=== PATIENT | female | born 1990 | race African-American/Black ===

== ENCOUNTER 2025-02-18 11:48 | Emergency (ER) | payer OTHER ==
[~2025-02-18] VITALS: Ht 167.6 cm; Wt 66.0 kg
[2025-02-18 11:52] VITALS: O2SAT 100
[2025-02-18 12:08] VITALS: TEMP 36.8; O2SAT 99
[2025-02-18 13:41] VITALS: BP 107/69; PULSE 65; RESP 14
[2025-02-18] MEDS: HYDROCODONE/ACETAMINOPHEN 5/325MG TABLET PO ONE (13:41)
[2025-02-18] MEDS ORDERED: ACET-2708 PO (13:56)
[2025-02-18] MEDS ORDERED: HYDR-4001 PO (13:56)
[2025-02-18] MEDS ORDERED: NALO4SPR BOTHNSTRLS (13:59)
== END 2025-02-18 14:20 | disposition home or self-care (01) ==
LOC: ER 11:48
DX: K01.1 Impacted teeth (principal)
CPT/HCPCS: 99283